=== PATIENT | male | born 1950 | race Asian ===

== ENCOUNTER 2025-07-13 20:18 | Emergency (ER) | payer OTHER, SELFPAY ==
[2025-07-13 20:23] VITALS: BP 198/93
[2025-07-13 21:02] LABS: Hematocrit 47.4 % (39.0-52.0); Hemoglobin 15.6 g/dL (13.0-18.0); Mean Corp Hgb Conc. 32.9 g/dL (33.0-37.0); Mean Corpuscular Volume 88.4 fL (80.0-94.0); Nucleated Red Blood Cells % 0 % (-); Platelet Count 251 10^3/uL (130-400); Red Cell Dist. Width 13.3 % (11.5-14.5)
[2025-07-13 21:21] LABS: Blood Urea Nitrogen 17 mg/dl (9-20); Calcium 9.1 mg/dl (8.4-10.2); Carbon Dioxide 26 mmol/L (22-30); Chloride 105 mmol/L (98-107); Glucose 110 mg/dl (70-99); Sodium 137 mmol/L (135-145); eGFR 47.95
[2025-07-13 21:27] LABS: Troponin I 0.014 ng/ml
[2025-07-14 00:08] VITALS: BP 204/87
[2025-07-14 01:00] VITALS: BP 173/90
--- NOTE | 2025-07-14 01:48 | ED.GENMED ---
History of Present Illness
General
Chief Complaint: Blood Pressure Problem
Source: patient
Exam Limitations: none
Time Seen by Provider: 07/14/25 01:32
Nursing documentation reviewed up to this point in time: agreed with
History of Present Illness
History of Present Illness:
Note:
CHIEF COMPLAINT(S)
High blood pressure and headache.
HISTORY OF PRESENT ILLNESS
The patient is a 75-year-old male who presented to the emergency department with complaints of high blood pressure and a headache. According to the accompanying family member, the patient expressed having a headache upon arrival at the hospital.
There was no report of chest pain, and he has never been to this medical facility before. The patient has also been experiencing a persistent cough for a long time, which has impacted his sleep. The family believes this might be contributing to his
elevated blood pressure.
ADDITIONAL HISTORY OBTAINED FROM SOURCES OTHER THAN THE PATIENT
The family member accompanying the patient provided additional information, stating that the patient was just visiting from [facility] and lives in [place]. The patient used to work in an office and in cleaning. The accompanying individual also
provided details about the patients medication intake, noting uncertainty about the consistency but believing the patient is compliant.
CHRONIC MEDICAL CONDITIONS SIGNIFICANTLY AFFECTING CARE
The patient reportedly has a history of high blood pressure and is on medication for this condition.
MEDICATIONS
The patients medication list includes atorvastatin, fish oil, naproxen, lisinopril, metoprolol, furosemide (Lasix) 40 mg, and loratadine.
PHYSICAL EXAM
General: Alert, no acute distress.
Cardiovascular: Blood pressure measured at 170/90. Heart sounds reveal S1 and S2, with no S3, S4, or murmurs.
Respiratory: Lungs are clear and there is no respiratory distress.
Gastrointestinal : Abdomen is soft and non-tender. No costovertebral angle tenderness is present.
PLAN
1. Perform a chest X-ray to investigate the persistent cough.
2. Conduct blood tests to assess any underlying causes of elevated blood pressure.
3. Administer a CT scan of the head to investigate the cause of the headache.
4. Consider medication for blood pressure control following the CT scan results.
5. Plan to discharge the patient if the evaluations return results within normal limits.
DIFFERENTIAL DIAGNOSIS
The Differential Diagnosis includes, in no particular order and is not limited to:
1. Hypertensive crisis
2. Primary headache syndrome
3. Secondary headache due to elevated blood pressure
4. Chronic cough due to bronchitis or other respiratory issues
5. Medication non-compliance
6. Anxiety or stress-induced hypertension
7. Heart failure
8. Pulmonary issues such as pneumonia or COPD exacerbation
9. Sleep apnea contributing to hypertension
10. Sinusitis leading to headache and cough
CARE-UPDATE
07/14/25 - 03:14
Blood pressure has improved. Head assessment reveals no acute findings. Cardiac enzymes normal upon repeat testing, with no acute changes on the EKG. Patient is stable for discharge and will follow up with their physician in [place].
EKG
My independent EKG interpretation is:
- Rhythm: Sinus rhythm
- Heart Rate: 62 bpm
- Abnormality: ST abnormality
-normal qrs, pr, qt
Disposition:
SUMMARY OF ENCOUNTER
The patient, a 75-year-old male, presented to the emergency department with complaints of high blood pressure and a headache. The accompanying family member noted a persistent cough affecting the patients sleep. There is a history of hypertension,
and initial evaluation showed a blood pressure of 170/90. A CT scan and chest X-ray were ordered to investigate headache and respiratory issues, along with blood tests. The patient showed no acute distress upon examination, and cardiac enzymes were
normal. The patient was stable enough to be discharged home with plans for follow-up.
DISPOSITION
Discharge.
ASSESSMENT
The patient presented with high blood pressure and headache, potentially due to secondary headache caused by hypertension. Consideration included a hypertensive crisis, though stable vitals and normal cardiac findings lessened the likelihood of
acute complications such as ACS or PE.
PLAN
1. Discharge the patient with instructions to follow up with his primary care physician in [place].
2. Continue current hypertension management, considering medication adjustments if symptoms persist or worsen.
INDEPENDENT REVIEW OF LABS AND INTERPRETATION OF TESTS
- My independent EKG interpretation is sinus rhythm, heart rate 62 bpm, with unclear 'STMT' noted but no acute changes identified.
MEDICATION RECONCILIATION
The patients current medications include atorvastatin, fish oil, naproxen, lisinopril, metoprolol, furosemide (Lasix) 40 mg, and loratadine.
MEDICAL DECISION MAKING
- Number and Complexity of Problems Addressed: Chronic conditions affecting care including history of hypertension, and consideration of differential diagnoses such as hypertensive crisis, primary headache syndrome, secondary headache due to
elevated blood pressure, chronic cough due to bronchitis or other respiratory issues, medication non-compliance, anxiety or stress-induced hypertension, heart failure, pulmonary issues, sleep apnea, and sinusitis.
- Data:
Category 1
Testing and documentation were reviewed, including EKG and consideration of previous medical history.
Category 2
Assessment required input from an independent historian as provided by the family member present.
-Risk:
Consideration of Admission/Observation: Escalation of care including admission/observation was considered given the complexity and risk of the patients presenting complaint, exam findings, and/or their underlying comorbidities. However, ultimately
it was determined the patient is safe for outpatient management with close follow-up. Reasoning: Work-up reassuring, does not reveal any acute life/organ-threatening processes, patients symptoms well controlled upon reevaluation, reexamination is
reassuring, vitals are stable, patient agreeable with discharge, reliable for follow-up.
DIAGNOSIS
1. Hypertension - ICD-10: I10
2. Headache, unspecified - ICD-10: R51
Phy Exam
Physical Exam
Physical Exam:
.
Course
Orders/Labs/Results
Orders:
Orders
07/13/25 20:30
Electrocardiogram (*1) Urgent
Reason for Study: Chest Pain
EKG- Treatment ONCE
07/13/25 20:45
Basic Metabolic Panel Urgent
Complete Blood Count/With Diff Urgent
Troponin I Urgent
07/14/25 01:44
Clonidine [Catapres] 0.2 mg PO NOW STA
07/14/25 01:47
CT Head W/o Iv Contrast Urgent
Comment:
Reason For Exam: headache
CR Chest - 2 Views Urgent
Comment:
Reason For Exam: cough, short of breath
07/14/25 02:09
Electrocardiogram (*1) Urgent
Reason for Study: Hypertension, Benign
EKG- Treatment ONCE
07/14/25 02:16
Troponin I Urgent
07/14/25 02:40
Piperacillin/Tazo 4.5 Gram [Zosyn] 4.5 gram in 100 ml IV NOW
Vancomycin [Vancocin] 2,000 mg 0.9% Sodium Chloride 500 ml [Nss] 500 ml IV NOW
Abnormal Lab Results
07/13/25
20:45
MCHC 32.9 L g/dL
(33.0-37.0)
MPV 11.4 H fL
(7.4-10.4)
Abs Immat Gran (auto) 0.1 H 10^3/uL
(0-0.05)
Absolute Monos (auto) 0.9 H 10^3/uL
(0.1-0.6)
Immature Gran % 0.6 H %
(0-0.5)
Monocytes % 9.9 H %
(1.7-9.3)
Creatinine 1.5 H mg/dL
(0.7-1.3)
Glucose 110 H mg/dl
(70-99)
07/13/25 20:45
07/13/25 20:45
Vital Signs
Initial and Last Documented VS:
Initial Vital Signs
Temp Pulse Resp BP Pulse Ox
97.6 F 60 18 198/93 99
07/13/25 20:23 07/13/25 20:23 07/13/25 20:23 07/13/25 20:23 07/13/25 20:23
Last Documented Vital Signs
Temp Pulse Resp BP Pulse Ox
97.6 F 69 18 175/89 97
07/13/25 20:23 07/14/25 02:17 07/13/25 20:23 07/14/25 03:00 07/14/25 03:01
*Pulse Oximetry
SaO2: 97
Oxygen Mode of Delivery: Room air
Patient hypoxic: no
*Critical Care Note
Total Time (30-74mins, 75-104mins- exclusive of procedures): Not Applicable
ED Attending Note
-
Portions of this chart may have been created with voice recognition software.� Occasional wrong word or��sound alike� substitutions may have occurred due to the inherent limitations of voice recognition software.
Discharge Plan
Departure
Patient Disposition: Home (Routine Discharge)
Date of Disposition: 07/14/25
Time of Disposition: 03:16
Patient with high blood pressure during this ER visit?: Yes
Condition: Good
Discharge Problem:
Headache, High blood pressure
Instructions: High Blood Pressure (DC), Headaches in adults, BLOOD PRESSURE
Prescriptions:
No Action
furosemide [Lasix] 40 mg Tablet
40 mg PO DAILY
clonidine HCl 0.1 mg Tablet
0.1 mg PO BID
atorvastatin 20 mg Tablet
20 mg PO QPM
metoprolol succinate 50 mg Tablet Extended Release 24 Hr
50 mg PO DAILY
amlodipine 10 mg Tablet
5 mg PO DAILY
cyanocobalamin (vitamin B-12) [Dodex] 1,000 mcg/mL Solution
1,000 mcg IM QWEEK
losartan 100 mg Tablet
100 mg PO DAILY
docusate sodium 100 mg Tablet
100 mg PO BID PRN (Reason: constipation)
Vitamin D2 25,000 unit Capsule
50,000 unit PO QWEEK
Fish Oil 1,000 mg Capsule
1 cap PO DAILY
Referrals:
NONE,* [Family Provider, Internal Medicine]
Activity Restrictions/Additional Instructions:
Follow up with primary care in 3-5 days. Return for any concerns.
Interventions
Interventions:
*Risk Screen - Suicide Last Done: 07/14/25 00:15
*General Assessment Last Done: 07/14/25 00:22
*Neglect/Abuse Screening Last Done: 07/14/25 00:22
*ED- Fall Risk Assessment Last Done: 07/14/25 00:22
*ED COVID-19 Vaccine History Last Done: 07/14/25 00:21
ED- Cardiac Assessment Last Done: 07/14/25 00:15
ED- Neurological Assessment Last Done: 07/14/25 00:15
ED- Pulmonary Assessment Last Done: 07/14/25 00:15
Discharge Date and Time
Print Language: POLISH
[2025-07-14 02:12] VITALS: BP 176/89
[2025-07-14] MEDS: CATAPRES 0.2 MG PO (02:17)
[2025-07-14 03:00] VITALS: BP 175/89
[2025-07-14 03:13] LABS: Troponin I < 0.012 ng/ml
== END 2025-07-14 03:27 | disposition home or self-care (01) ==
LOC: EMR 20:18
PROVIDERS: EMERGENCY PHYSICIAN Emergency Medicine
DX: R51.9 Headache, unspecified (principal); I10 Essential (primary) hypertension; Z79.899 Other long term (current) drug therapy; R05.3 Chronic cough
CPT/HCPCS: 99284; 70450; 71046; 80048; 84484; 85025; 93005